=== PATIENT | male | born 1955 | race Caucasian/White ===

== ENCOUNTER 2016-03-26 19:20 | Observation (INO) | payer OTHER ==
[~2016-03-26] VITALS: Ht 180.3 cm; Wt 102.9 kg
[2016-03-26] MEDS ORDERED: 0.9% Sodium Chloride 1,000 ML IV ONE (19:22)
[2016-03-26] MEDS ORDERED: Labetalol 5 mg/mL 4 mL Inj IV PRN (19:25)
[2016-03-26 19:30] LABS: BASOPHILS % (AUTO) 0.5 % (0-3); EOSINOPHILS % (AUTO) 3.3 % (0-5); MONOCYTES % (AUTO) 7.3 % (4-12); Mean Corpuscular Hemoglobin 28.5 pg (27.0-35.0); Mean Corpuscular Volume 82.6 fL (81-100); NEUTROPHILS % (AUTO) 60.3 % (40-74); Platelet Count 229 bil/L (150-400)
[2016-03-26 19:35] VITALS: BP 162/83; PULSE 58; RESP 17; O2SAT 98
--- NOTE | 2016-03-26 19:38 | DRSVH ---
PROCEDURE: CT BRAIN (TPA) ([id number]) INDICATIONS: Stroke TECHNIQUE: Noncontrast 4.5 mm thick angled axial sections acquired from the foramen magnum to the vertex, with c oronal reformats. COMPARISON: None. FINDINGS: Image quality: Excellent. CSF spaces: Basal cisterns are patent. No extra-axial fluid collections. The ventricles are symmet brianna in size and shape. Brain: No intracranial bleeds or masses. There is cerebral volume loss for age, with resultant vent ricular and sulcal prominence. There are periventricular and deep white matter chronic small vessel ischemic changes. There is intracranial internal carotid artery atherosclerosis. Skull and face: Calvarium and visualized facial bones appear intact, without suspicious lesions. Sinuses: Visualized sinuses and mastoids are clear. IMPRESSION: 1. No acute intracranial disease process. 2. Findings telephoned to Dr. Arvin Hou on 03/26/2016 at 1933 hrs. This study fulfills neurological imaging criteria for inclusion or exclusion of acute stroke therapie s based on available published neurological guidelines. Dictated by: Mansi Pimentel MD, PhD on 03/26/2016 at 19:36 Approved by: Mansi Pimentel MD, PhD on 03/26/2016 at 19:36
[2016-03-26 19:46] LABS: INR 0.96 ratio
[2016-03-26 19:54] LABS: TROPONIN T < 0.010 ug/L (0.0-0.011)
--- NOTE | 2016-03-26 20:36 | ED.REPORT ---
HPI-Neurologic Deficit Date of Service Mar 26, 2016 ED Provider: Arvin Hou DO This patient is a 60 year old male with no known medical history brought in by EMS presenting with a suspected stroke that started 1855. Pt. had sudden right arm weakness and numbness, as well as aphasia. After arriving to ED, these symptoms improved, though not completely. Packager strength also improved after arriving to ED. Nursing Notes Stated Complaint: RIGHT SIDE WEAKNESS Chief Complaint: Neuro Symptoms/ Deficits Nursing Notes Reviewed: Yes Allergies: Coded Allergies: Cultivated Oat Pollen (Verified Allergy, Mild, 03/26/16) sinus congestion Molds and Smuts (Verified Allergy, Unknown, 03/26/16) Scheduled ([Vitamin C]) Unknown Dose HS Aspirin (Aspirin) 81 Mg Tablet 81 MG PO HS Cholecalciferol (Vitamin D3) (Vitamin D) 1,000 Unit Capsule 2,000 UNIT PO HS Fluoxetine (Fluoxetine) 20 Mg Capsule 40 MG PO HS Scheduled PRN ([ibuprofen]) Unknown Dose PO HS PRN PRN For Pain ([viagra]) Unknown Dose PO PRN for sexual activity General Time Seen by Provider: 19:23 Chief Complaint Weakness arm... (Right) Hx Obtained From: Patient, EMS Arrived By: Ambulance Sudden in Onset?: Yes Onset Occurred: 16 - 30 minutes ago Symptom Duration: Since onset Recent Healthcare: No recent doctor visit, No recent hospitalization Similar Sx Previous: No Risk Factors Risk Notes: pt evaluated immediately upon arrival in ED NIH Stroke Scale Level of Consciousness: Alert and responsive (0) Ask Month & Age: Both questions right (0) Open/Close Eyes/Hand Packager: Performs both tasks (0) Horizontal EO Movements: None (0) Visual E[place]erson: No visual loss (0) Facial Palsy: Normal symmetry (0) Right Arm Motor Drift (10s): Drift, not touch bed (1) Left Arm Motor Drift (10s): No drift 10 sec (0) Right Leg Motor Drift (5s): No drift 5 sec (0) Left Leg Motor Drift (5s): No drift 5 sec (0) Limb Ataxia FNF/Heel-Garcia: No ataxia (0) Sensation (Arms/Legs/Face): No sensory loss (0) Language Aphasia: No aphasia, normal (0) Dysarthria: Slurring intelligible (1) Extinction/Inattention: No exctinct/inattent (0) NIHSS Score: 2 Time NIHSS Performed: 19:23 Date NIHSS Performed: Mar 26, 2016 Level of Consciousness: Alert and responsive (0) Ask Month & Age: Both questions right (0) Open/Close Eyes/Hand Packager: Performs both tasks (0) Horizontal EO Movements: None (0) Visual E[place]erson: No visual loss (0) Facial Palsy: Normal symmetry (0) Right Arm Motor Drift (10s): No drift 10 sec (0) Left Arm Motor Drift (10s): No drift 10 sec (0) Right Leg Motor Drift (5s): No drift 5 sec (0) Left Leg Motor Drift (5s): No drift 5 sec (0) Limb Ataxia FNF/Heel-Garcia: No ataxia (0) Sensation (Arms/Legs/Face): No sensory loss (0) Language Aphasia: No aphasia, normal (0) Dysarthria: No dysarthria, normal (0) Extinction/Inattention: No exctinct/inattent (0) NIHSS Score: 0 Time NIHSS Performed: 20:25 Date NIHSS Performed: Mar 26, 2016 Past Medical History Past Medical History Unknown Past Surgical History Unknown Smoking History Unknown if Ever Smoker Social History Other Social History: Good social support, , Local resident Ambulatory Status Independent Review of Systems Basic Review of Systems ENT: Hearing NL Respiratory: Denies: Non-productive cough Skin: Denies Rash Neurologic: Reports: Slurred speech, Weakness (R arm) Complete sys rev & neg: except as marked. Physical Exam Initial Vital Signs Vital Signs (First) Date Time Temp Pulse Resp B/P Pulse Ox O2 Delivery O2 Flow Rate FiO2 03/26/16 19:35 36.8 58 17 162/83 98 Room Air Initial VS: Reviewed ENT: Mucous membranes moist, Conjunctiva normal, No scleral icterus Neck: Supple, Non-tender, Full range of motion Abdomen / GI: Soft, Non-tender Skin: Warm, Dry, No cyanosis General/Constitutional: Awake, Well developed Head / Eyes: Atraumatic, Normocephalic Respiratory / Chest: Atraumatic, Breath sounds NL, Breath sounds = bilat, No respiratory distress, No rales, No rhonchi, No retractions Cardiovascular: Heart rate NL, Regular rhythm, Heart sounds NL, No gallop, No murmurs Speech: Positive: Expressive aphasia (Mild upon arrival to ED) R arm clumsiness upon arrival to ED Interpretation & Diagnostics Interpretation & Diagnostics: CT angiogram of head, conclusion: Normal non-contrast CT scan of the head CT angiogram of neck, conclusion: Normal CT angiogram of the head Dictated by: Tk Coles MD Lab Results Interpretation Result Diagram: 03/26/16192703/26/161927 Test 03/26/16 19:28 03/26/16 20:45 White Blood Count 5.8th/mm3 (3.8-10.1) Red Blood Count 5.33mil/mm3 (4.40-5.80) Hemoglobin 15.2g/dL (13.8-17.2) Hematocrit 44.0% (41.0-50.0) Mean Corpuscular Volume 82.6fL (81-100) Mean Corpuscular Hemoglobin 28.5pg (27.0-35.0) Mean Corpuscular Hemoglobin Concent 34.5% (32.0-37.0) Red Cell Distribution Width 12.6% (12.3-15.4) Platelet Count 229bil/L (150-400) Neutrophils (%) (Auto) 60.3% (40-74) Lymphocytes (%) (Auto) 28.3% (14-46) Monocytes (%) (Auto) 7.3% (4-12) Eosinophils (%) (Auto) 3.3% (0-5) Basophils (%) (Auto) 0.5% (0-3) Prothrombin Time 10.3sec (8.1-12.5) Prothromb Time International Ratio 0.96ratio Activated Partial Thromboplast Time 26.4sec (22.8-33.0) Sodium Level 142mEq/L (134-144) Potassium Level 4.4mEq/L (3.5-5.2) Chloride Level 101mEq/L (97-108) Carbon Dioxide Level 28mmol/L (18-29) Blood Urea Nitrogen 20mg/dL (8-27) Creatinine 1.19mg/dL (0.76-1.27) Estimat Glomerular Filtration Rate 66mL/min (>59) Glucose Level 99mg/dL (60-99) Calcium Level 9.9mg/dL (8.5-10.1) Total Bilirubin 0.5mg/dL (0.0-1.2) Aspartate Amino Transf (AST/SGOT) 31U/L (0-50) Alanine Aminotransferase (ALT/SGPT) 46U/L (0-44) Alkaline Phosphatase 78U/L (25-160) Troponin T < 0.010ug/L (0.0-0.011) Total Protein 8.0g/dL (6.4-8.4) Albumin 4.6g/dL (3.4-5.0) Urine Color Straw (YELLOW) Urine Appearance Clear (CLEAR,HAZY) Urine pH 6.0 (5.0-8.0) Urine Specific [place] 1.015 (1.003-1.035) Urine Protein Negativemg/dL (NEG,TRACE) Urine Glucose (UA) Negativemg/dL (NEGATIVE) Urine Ketones Negativemg/dL (NEGATIVE) Urine Occult Blood Trace (NEGATIVE) Urine Nitrite Negative (NEGATIVE) Urine Bilirubin Negative (NEGATIVE) Urine Urobilinogen Normalmg/dL (NORMAL) Urine Leukocyte Esterase Trace (NEGATIVE) Urine RBC 0-2/hpf (0-2) Urine WBC 0-5/hpf (0-5) Urine Epithelial Cells Occasional/hpf (NONE-MOD) Urine Crystals None seen (NONE SEEN) Urine Bacteria None/hpf (NONE-FEW) Urine Hyaline Casts None/lpf (NONE) Urine Granular Casts None seen (NONE SEEN) Urine Waxy Casts None seen (NONE SEEN) Urine Red Blood Cell Casts None seen (NONE SEEN) Urine White Blood Cell Casts None seen (NONE SEEN) Urine Mucus None seen (None Seen) Urine Trichomonas None seen (NONE SEEN) Urine Yeast None (NONE SEEN) Urinalysis Comment None Urine Culture Reflexed Indicated Pulse Oximetry Interpretation Pulse Oximetry Interpretation: 98% on room air Pulse Oximetry: Pulse Ox normal ECG Interpretation ECG Interpretation: Normal sinus rhythm with a rate 53 Time: 19:36 Interpreted by: ED physician X-Ray Chest Interpretation Chest Xray Interpretation: IMPRESSION: No acute cardiopulmonary disease process. Dictated by: Mansi Pimentel MD, PhD on 03/26/2016 at 20:44 Interpretation / Wet Read by: Interpret - Radiologist CT Head Interpretation IMPRESSION: 1. No acute intracranial disease process. 2. Findings telephoned to Dr. Arvin Hou on 03/26/2016 at 1933 hrs. This study fulfills neurological imaging criteria for inclusion or exclusion of acute stroke therapies based on available published neurological guidelines. Dictated by: Mansi Pimentel MD, PhD on 03/26/2016 at 19:36 Study: Head CT no contrast Interpretation / Wet Read by: Interpret - Radiologist Re-Eval/Medical Decision Med Decision/Clinical Course 60-year-old male presented with rapidly improving aphasia/diffuse arthritic and right mobile lounge driver or operator strength loss. I evaluated him as he was rolling to CAT scan. He had very poor mobile lounge driver or operator strength of his right arm and his arm had a pronator drift. His speech was mildly dysarthric. Shortly thereafter all deficits resolved. I performed no less than 4 stroke exams. His final 3 stroke exams were all scored at 0. CT and CT angiogram were reassuring. He was treated with antiplatelets. He will be admitted to the hospitalist service. Source of Hx: Old records, EMS Re-Evaluation/Progress #1: Time of Eval: 20:25 Patient Status: Condition improved Re-Evaluation/Progress Note: Pt rechecked, whose condition has improved. Pt and family are informed of radiology results, diagnosis of TIA, and the plan for admission. Pt and his family understand and agree with the plan. All questions are addressed at this time. Re-Evaluation/Progress #2: Time of Eval: 22:15 Patient Status: Condition unchanged Re-Evaluation/Progress Note: Pt. rechecked. Informed pt. that we are waiting on a bed in admit. Pt. understands and agrees with plan. All questions have been addressed at this time. Consultation : Referral / Consult Name: Quan Berger MD Consulted With: Hospitalist Call Returned at: 22:09 Blow Down Operator: Will see patient, Agrees with eval, Agrees with plan, Accepts admit Note: Consulted with Dr. Begrer, hospitalist, regarding pt.'s case. Dr. Berger agrees with eval and plan. He will see the patient and accept admit. Counseled Regarding: Diagnosis, Lab results, Need for admission Discharge & Departure Impression: Primary Impression: TIA (transient ischemic attack) Transient cerebral ischemia type: unspecified Qualified Code: G45.9 - Transient cerebral ischemic attack, unspecified Disposition: ADMITTED TO HOSPITAL Discharge Condition All VS Reviewed: Yes Condition: Stable Referrals: NOPCP (PCP) Scribe Attestation Portions of this note were transcribed by Koki Buchanan and Tsering Billingsley. I, Dr. Hou personally performed the history, physical exam and medical decision-making ; I reviewed and confirmed the accuracy of the information in the transcribed note. Signed by: Koki Buchanan and Tsering Billingslye, Nithin, 03/26/2016 and 2308. Arvin Hou DO Mar 26, 2016 20:36 Kelly Buchanan [Koki] Mar 26, 2016 20:59 TSERING BILLINGSLEY Mar 26, 2016 21:19
--- NOTE | 2016-03-26 20:45 | DRSVH ---
PROCEDURE: X-RAY CHEST ONE VIEW, PORTABLE ([id number]) INDICATIONS: RIGHT SIDED WEAKNESS TECHNIQUE: One view of the chest was acquired. COMPARISON: None. FINDINGS: Surgical changes and devices: None. Lungs and pleura: No pleural effusions or pneumothorax. Lungs are clear. Mediastinum: Mediastinal contours appear normal. Heart size is normal. Bones and chest wall: No suspicious bony lesions. Overlying soft tissues appear unremarkable. IMPRESSION: No acute cardiopulmonary disease process. Dictated by: Mansi Pimentel MD, PhD on 03/26/2016 at 20:44 Approved by: Mansi Pimentel MD, PhD on 03/26/2016 at 20:44
[2016-03-26 20:57] LABS: APPEARANCE,URINE CLEAR (CLEAR,HAZY); COLOR,URINE STRAW (YELLOW); OCCULT BLOOD,URINE TRACE (NEGATIVE); UROBILINOGEN,URINE NORMAL (NORMAL)
[2016-03-26 21:51] VITALS: BP 135/74; PULSE 54; RESP 16; O2SAT 95
[2016-03-26] MEDS ORDERED: Ondansetron 2 mg/mL 2 mL Inj IV PRN (22:15)
[2016-03-26] MEDS ORDERED: Alum-Mag Hydrox-Simeth 30 mL Suspension PO PRN (22:15)
[2016-03-26] MEDS ORDERED: Polyethylene Glycol (PEG) 17 Gm Powder PO PRN (22:15)
[2016-03-26 23:05] VITALS: BP 172/96; PULSE 57; RESP 20; O2SAT 100
[2016-03-26] MEDS: 0.9% Sodium Chloride 1,000 ML IV SCH (23:13)
--- NOTE | 2016-03-26 23:24 | PCM.HPMED ---
Subjective Date of Service Mar 26, 2016 Primary Provider: Admitting Physician: Primary Care Physician: Thanh Attending Physician: Admit Status: From the Emergency Department Chief Complaint: Right arm weakness and aphasia History of Present Illness: 60 year old male with hx of anxiety, erectile dysfunction, and no other medical problems presented to ED via EMS due to acute onset of right arm numbness and weakness with concurrent aphasia that began at 1855 (3 1/2 hours) this evening. Pt states that his symptoms came on suddenly after sitting down at a computer. His called EMS after 2 minutes. He states that his symptoms began resolving within 5 minutes and were mostly gone by the time EMS arrived. He has never experienced these symptoms prior to this. He denies ongoing medical problems as well as past medical hx. No family hx of CVA but his mother of PR at 72. His PCP is at [facility]. He worked for [employer] in [place] This patient is a 60 year old male with no known medical history brought in by EMS presenting with a suspected stroke that started 1855. Pt. had sudden right arm weakness and numbness, as well as aphasia. After arriving to ED, these symptoms improved, but not 100%. Manager Maritime strength was improved after arriving to ED. Review of Systems: A comprehensive review of systems was conducted with the patient and found to be negative except as above in the History of Present Illness. Allergies Coded Allergies: Cultivated Oat Pollen (Verified Allergy, Mild, 03/26/16) sinus congestion Molds and Smuts (Verified Allergy, Unknown, 03/26/16) Home Medications Prozac Asa 81mg daily PMH Anxiety Erectile dysfunction Surgical History ACL repair Orthoscopic meniscus repair Tonsillectomy Social History Hx Alcohol Use: No (quit 30 years ago) Hx Tobacco Use: No Smoking Status: Never Smoker Living Arrangement: with Family Exam Vital Signs Vital Sign - Last Date Time Temp Pulse Resp B/P Pulse Ox O2 Delivery O2 Flow Rate FiO2 03/26/16 21:51 54 16 135/74 95 Room Air 03/26/16 19:35 36.8 Exam Gen: AOx3 NAD HEENT: EOMI, PERRLA good dentition; membranes moist Cardio: RRR no m/r/g Resp: CTA bilaterally no w/r/c Abd: central obesity; + bs; non-distended, non-tender Est: No edema; moving all four extremities Neuro: EOMI, PERRLA, swallow intact; no tongue deviation; speech is slightly slurred due to mouth guard ( states hes at baseline and improved), face is symmetrical, hearing symmetric and intact; no sensation loss throughout; strength 5/5 throughout and symmetric; babinski negative; [id number]-[id number] appropriate; finger-nose intact; no pronator drift; responds appropriately psych: NAD; appropriate mood and affect NIH score: 0 Lab and Diagnostics Result Diagram: 03/26/16192703/26/161927 X-Rays, CTs and MRIs Chest X-ray IMPRESSION: No acute cardiopulmonary disease process. Dictated by: Mansi Pimentel MD, PhD on 03/26/2016 at 20:[address] IMPRESSION: 1. No acute intracranial disease process. 2. Findings telephoned to Dr. Arvin Hou on 03/26/2016 at 1933 hrs. This study fulfills neurological imaging criteria for inclusion or exclusion of acute stroke therapies based on available published neurological guidelines. Dictated by: Mansi Pimentel MD, PhD on 03/26/2016 at 19:36 12-lead ECG NSR at 53bpm Assessment & Plan 60 year old with hx of anxiety presented to ED via EMS due to acute onset right arm numbness and weakness, and aphasia that started to resolved by the time EMS arrived. Acute TIA vs stroke; poa; resolving - Pt presents with right arm weakness and numbness, and aphasia that began resolving in the ED. Initial NIH was 2 in ED, now NIH 0 - No medical hx, unsure what triggered this TIA - CT brain was negative; CTA pending; - Consider MRI w and w/o contrast tomorrow; however, radiology report on CT states that CT fulfills requirement for inclusion/exclusion of acute stroke - Start atorvastatin 40mg HS - Continue home ASA 81 tomorrow; given 325 on admission - Will allow htn up to SBP 200 tonight; was treated in ED with labetalol - Lipid panel tomorrow - A1c tomorrow, but likely to be normal as pt was eating prior to presentation and BG < 100 - Repeat labs Anxiety; present on admission; stable - Pt takes Prozac outpatient. - Will not order anything at this time. - When med rec completed, will continue prozac Dispo: Pt admitted under observation with expected LOS < 2 midnights pending outcome of diagnostics Pain Evaluation: Adequate Pain Control Resuscitation Status: CPR: Attempt Resuscitation Attending Statement The patient was seen on 03/26/2016 and I agree with the history, exam and plan as outlined in the note above. Killian Koenig DO Mar 26, 2016 23:24 Quan Berger MD Mar 27, 2016 06:19
[2016-03-26] MEDS ORDERED: ASPI-973 PO (23:50)
[2016-03-26] MEDS ORDERED: FLUO20CA25 PO (23:50)
[2016-03-26] MEDS ORDERED: Vitamin C (23:50)
[2016-03-26] MEDS ORDERED: CHOL100045 PO (23:51)
[2016-03-26] MEDS ORDERED: ibuprofen PO (23:52)
[2016-03-26] MEDS ORDERED: viagra PO (23:54)
[2016-03-27 04:18] VITALS: BP 129/74; PULSE 53; RESP 16; O2SAT 98
[2016-03-27 05:16] VITALS: PULSE 56
[2016-03-27 05:55] LABS: BASOPHILS % (AUTO) 0.6 % (0-3); EOSINOPHILS % (AUTO) 3.9 % (0-5); MONOCYTES % (AUTO) 8.8 % (4-12); Mean Corpuscular Hemoglobin 28.7 pg (27.0-35.0); Mean Corpuscular Volume 82.7 fL (81-100); NEUTROPHILS % (AUTO) 54.1 % (40-74); Platelet Count 185 bil/L (150-400)
[2016-03-27] MEDS: 0.9% Sodium Chloride 1,000 ML IV SCH (07:20)
[2016-03-27 07:52] VITALS: BP 129/75; PULSE 59; RESP 14; O2SAT 96
[2016-03-27 08:00] VITALS: PULSE 54
--- NOTE | 2016-03-27 08:17 | NUR ---
Admit Pt admitted to [facility] 2029 around 0, no neuro deficits noted with assessments, nurse charge rn did swallow screen per order and pt had no difficulties. Pt A&Ox3 and able to answer admit questions, all vitals stable. Tele Sbrady 50s most of night, NS @ 125/hr
--- NOTE | 2016-03-27 08:49 | DRSVH ---
PROCEDURE: US BILATERAL DUPLEX DOPPLER IMAGING OF THE CAROTIDS ([id number]) INDICATIONS: APHASIA TECHNIQUE: Color and pulse Doppler interrogation was performed of both carotid systems, with image documentation and velocity measurements. COMPARISON: None. FINDINGS: All stenosis calculations are based on NASCET criteria. Right side: Brachial blood pressure: Not obtained due to peripheral IV catheter. Common Carotid Artery(Distal) PSV: 73.50 cm/s Internal Carotid Artery PSV- Proximal: 100.10 cm/s Mid-lon cm/s Distal: 121.20 cm/s, 68.30 cm/s EDV - Proximal: 36.20 cm/s Mid-lon.80 cm/s Distal: 40.40 cm/s, 22.60 cm/s External Carotid Artery(Proximal) PSV: 152.30 cm/s ICA/CCA PSV ratio: 1.65 Benson scale imaging description: Focal atheromatous calcification is present at the bifurcation. Percent internal carotid artery stenosis: Less than 50% stenosis. Vertebral artery: Flow direction is antegrade. Left side: Brachial blood pressure: 129/74 mm Hg. Common Carotid Artery(Distal) PSV: 89.10 cm/s Internal Carotid Artery PSV - Proximal: 76.90 cm/s, 98.90 cm/s Mid-lon.70 cm/s Distal: 93.70 cm/s EDV - Proximal: 26 cm/s, 45.10 cm/s Mid-lon.90 cm/s Distal: 37 cm/s External Carotid Artery(Proximal) PSV: 90.80 cm/s ICA/CCA PSV ratio: 1.11 Benson scale imaging description: Focal atheromatous plaque is present at the bifurcation. Percent internal carotid artery stenosis: Less than 50%. Vertebral artery: Flow direction is antegrade. IMPRESSION: Less than 50% stenosis of the bilateral internal carotid arteries. Dictated by: Radha Rosales M.D. on 03/27/2016 at 8:47 Approved by: Radha Rosales M.D. on 03/27/2016 at 8:47
--- NOTE | 2016-03-27 09:18 | DRSVH ---
PROCEDURE: CT ANGIO HEAD AND NECK (P) INDICATIONS: POSSIBLE TIA, NEURO DEFICITS TECHNIQUE: Pre-contrast 4.5 mm thick sections acquired from the foramen magnum to the vertex. After the adminis tration of intravenous contrast, 1 mm thick sections acquired from the aortic arch through the [place]. Post-contrast 4.5 mm thick sections then re-acquired from the foramen magnum to the vert ex. 3-dimensional pbjeike-zdikiencv-lrobdnayfm (MIP) and/or volume rendering reformats were acquired of the central intracranial vasculature and neck separately. For radiation dose reduction, the foll owing was used: automated exposure control, adjustment of mA and/or kV according to patient size. COMPARISON: None. FINDINGS: Image quality: Excellent. BRAIN: CSF spaces: Ventricles are normal in size and shape. Basal cisterns are patent. No extra-axial flu id collections. Brain: No midline shift. No intracranial bleeds or masses. Benson-white matter interface appears int act. Skull and face: Calvarium and facial bones appear intact, without suspicious lesions. Orbits appear normal. Sinuses: Mild mucosal thickening noted in the maxillary sinuses bilaterally. The mastoids are clear. HEAD CT ANGIOGRAPHY: Anterior circulation: Intracranial internal carotid arteries are normal in size and flow. Atheroscle rotic calcifications are noted in the supraclinoid segments of the internal carotid arteries bilatera lly which cause measurable stenosis. The flow within the paired anterior cerebral arteries is normal and symmetric. The flow within the middle cerebral arteries is normal and symmetric. The anterior c ommunicating artery is seen. No aneurysms are seen. Posterior circulation: Visualized portions of the vertebral arteries demonstrate normal caliber, and join to form a normal appearing basilar artery. Flow within the posterior cerebral arteries is norm al and symmetric. No aneurysms are seen. There is normal contrast opacification of the dural sinuses. NECK CT ANGIOGRAPHY: Carotid system: The great vessels demonstrate a conventional anatomy as they arise from the aortic a the [facility]. The origins of the common carotid arteries appear patent. The common carotid arteries demonstr ate normal caliber and courses. Atherosclerotic calcifications noted in the origin of the right inter nal carotid artery which causes less than 50% stenosis of the vessel. The left internal carotid arter y is fully patent along its cervical segments. Posterior circulation: The origins of the vertebral arteries both appear widely patent. The more ochoa perior extracranial portions of both vertebral arteries also demonstrate normal courses and calibers. They join to form a normal appearing basilar artery. Soft tissues: Visualized neck soft tissues demonstrate no suspicious abnormalities. Bones: Spine degenerative disc disease and facet arthropathy are noted. No suspicious bony lesions. Visualized cervical spine appears normally aligned. IMPRESSION: 1. No acute intracranial disease process. 2. Atherosclerotic disease without measurable stenosis involving the supraclinoid segment of the intr acranial internal carotid arteries bilaterally. 3. Less than 50% stenosis of the origin of the right internal carotid artery. 4. Origin of the left internal carotid artery is fully patent. 5. Vertebral arteries are fully patent. 6. Mild bilateral maxillary sinus mucosal thickening. Dictated by: Mansi Pimentel MD, PhD on 03/27/2016 at 9:16 Approved by: Mansi Pimentel MD, PhD on 03/27/2016 at 9:16
--- NOTE | 2016-03-27 10:30 | DRSVH ---
[facility] [address] [place] [address] Echocardiogram Report Name: VLADISLAV MAGALLON Study Date: 03/27/2016 Height: 71 in Hospital Exam Location: [facility] Weight: 227 lb Gender: Male BSA: 2.2 m2 : 1955 Age: 60 yrs BP: 129/75 mmHg Reason For Study: Stroke Ordering Physician: HOSPITALIST SVHPerformed By: Leoncio Chu Referring Physician: JESSICA STEWART Interpretation Summary 1. Normal normal left ventricular size, wall thickness and systolic function with an estimated EF of 60-65% 2. Normal right ventricular size and systolic function. 3. No evidence for significant valvular pathology There is no old study for comparison Procedure: A two-dimensional transthoracic echocardiogram with color flow and Doppler was performed. The study quality was technically adequate. There is no prior echocardiogram noted for this patient. The patient was in sinus bradycardia with heart rates between 49-57 bpm during the exam. Left Ventricle: The left ventricle is normal in size, wall thickness, and systolic function without any focal wall motion abnormalities. Proximal septal thickening is noted. Mildly elevated LVOT velocities. The ejection fraction is estimated to be 60-65%. Left ventricular wall motion is normal. Assessment of diastolic parameters indicates normal left ventricular diastolic function and normal filling pressures. Right Ventricle: The right ventricle is normal in size, thickness and function. Atria: The left atrial size is normal. Right atrial size is normal. No color doppler evidence for an ASD. Mitral Valve: The mitral valve is normal. There is mild mitral regurgitation. Aortic Valve: The aortic valve is trileaflet. The aortic valve opens well. There is trace aortic regurgitation. Tricuspid Valve: The tricuspid valve is normal. There is a trace or physiologic amount of tricuspid regurgitation. Pulmonary artery pressures cannot be estimated because of the lack of a measurable TR jet velocity. Pulmonic Valve: The pulmonic valve leaflets are thin and pliable; valve motion is normal. There is a trace or physiologic amount of pulmonic regurgitation. Great Vessels: The aortic root is normal size. The dimensions of the ascending aorta are normal. The pulmonary artery is normal size. The inferior vena cava was not well visualized. Pericardium/ Pleura There is no pericardial effusion. There is no pleural effusion. MMode/2D Measurements & Calculations LVIDd: 4.6 cm RA long axis LVOT diam: 2.2 cm LVIDs: 3.3 cm LA A2 area: 17.4 cm AoV Openin.8 cm FS: 28.5 % LA A4 area: 22.3 cm RA area Ao root diam: 2.7 cm EPSS: 0.05 cm LA length (vol) asc Aorta Diam IVSd: 0.92 cm : 17.8 cm LVPWd: 1.0 cm LA vol: 56.8 ml RA vol Ao Arch Diam LA vol index : 50.8 ml (Proximal trans.) RA : 25.5 ml/m2 : 22.8 mm2 LV rm. diameter/BSALV sys. diameter/BSA RVD1 (basal) TAPSE: 2.6 cm (cm/m^2): 2.1 (cm/m^2): 1.5 Doppler Measurements & Calculations Ao V2 max: 137.9 cm/secMV E max ezio MV E/A: 1.0 PA V2 max Ao max P.6 mmHg : 64.8 cm/sec Med Peak E' Ezio : 90.8 cm/sec Ao mean P.7 mmHg MV A max ezio PA mean PG LVOT Max Ezio : 63.7 cm/sec E/E' med: 14.3 : 1.6 mmHg : 112.8 cm/sec Lat Peak E' Ezio NOEMI(I,D): 3.3 cm sev ratio: 0.85 E/E' lat: 9.3 MV dec time: 0.17 sec Ao V2 mean LV V1 max PG PA V2 mean : 91.4 cm/sec : 59.9 cm/sec Ao V2 VTI: 28.8 cmLV V1 VTI: 24.5 cm PA pr(Accel) : 55.6 mmHg NOEMI(V,D): 3.2 cm2 NOEMI indexed to BSA E/e' average (cm^2/m^2): 1.5 : 11.8 Reading Physician:10:30 AM
[2016-03-27 12:29] VITALS: BP_SYST 109; BP_SYST 145; BP_DIAS 52; BP_DIAS 89; PULSE 57; PULSE 77; RESP 16; RESP 18; O2SAT 97; O2SAT 99
--- NOTE | 2016-03-27 13:34 | DRSVH ---
PROCEDURE: MRI BRAIN WITH AND WITHOUT CONTRAST ([id number]) INDICATIONS: stroke TECHNIQUE: Noncontrast axial T1 spin echo, axial T2 fast spin echo, sagittal and axial FLAIR, coronal T2 fast sp in echo, axial gradient echo, axial diffusion and ADC through the brain. After the administration of contrast, axial and coronal 3D VIBE or T1 spin echo with fat saturation through the brain. COMPARISON: None. FINDINGS: Image quality: Excellent. CSF Spaces: Basal cisterns are patent. No extra-axial fluid collections. Ventricles are normal in size and shape. Brain: No midline shift. No intracranial bleeds or masses. No abnormal intracranial enhancement. The brainstem appears normal. Diffusion-weighted images demonstrate no acute ischemic insults. No c hronic ischemic insults. Normal intravascular flow voids are present. Skull and face: Calvarial marrow is normal in signal. Orbits appear normal. Sinuses: Minimal mucosal thickening noted in the paranasal sinuses. The mastoids appear clear. IMPRESSION: 1. No acute intracranial disease process. 2. No areas of acute or chronic infarction. 3. No abnormal intracranial mass or abnormal intracranial postcontrast enhancement. 4. Minimal paranasal sinus mucosal thickening. Please correlate with clinical findings. Dictated by: Mansi Pimentel MD, PhD on 03/27/2016 at 13:32 Approved by: Mansi Pimentel MD, PhD on 03/27/2016 at 13:32
--- NOTE | 2016-03-27 13:40 | NUR ---
Evaluation completed. Please go to "Notes" then click on "Assessments and Notes" (bottom left corner of screen). Then select appropriate discipline tab on top of screen.
[2016-03-27] MEDS ORDERED: ATOR40TA69 PO (14:16)
--- NOTE | 2016-03-27 14:16 | NUR ---
Mentation patient is alert and oriented X3. able to make needs known. General diet per speech therapy. neuros WNL. stable vital signs . On Tele. independent with all ADL's. independent with meals after set up. Received PO medication as ordered with out difficulty swallowing. Doctor at bed side. per doctor carotid doppler, MRI, and Echo normal. denies pain or discomfort. no reports of chest pain or chest discomfort reported by patient. family at bed side.
--- NOTE | 2016-03-27 14:26 | PCM.DIMED ---
LUÍS CHUNG DO 03/27/16 1426: Discharge Instructions Date of Service Mar 27, 2016 Dates of Hospitalization Mar 26, 2016 at 22:36 Discharge Diagnosis Discharge Diagnosis 1. Acute transient ischemic attack vs stroke, as on admission, resolved. 2. Elevated triglycerides, present on admission, new diagnosis. 3. Anxiety, present on admission. stable. Medication Instructions One new medication has been added to your home regimen to help improve your cholesterol levels: - Atorvastatin 40 mg nightly Continue all other medications per instructions by their prescriber. Diet Heart Healthy, Other (low carbohydrate) Activity No restrictions Call your provider Fever or Chills, Shortness of breath, Bleeding, Chest pain, Weakness (unilateral ) Patient Instructions - The symptoms you experienced yesterday of weakness and difficulty speaking or direct results of disease in your arteries. It is important that you control this and make proper lifestyle changes so that this does not progress and cause more lasting effects. - Please follow a low carbohydrate diet. This includes eliminating sugary drinks such as soda. - Increasing your physical activity is also important. Starting with walking daily and increasing as tolerated. - Follow-up with your primary care provider in one week. Follow-up with PCP in: 1 week Fco Hampton MD 03/28/16 0808: Discharge Instructions Attending's Statement The patient was seen and examined together with Dr. Chung on 03/27/2016 and I agree with the history, exam and plan as outlined in the note above. . LUÍS CHUNG DO Mar 27, 2016 14:26 Fco Hampton MD Mar 28, 2016 08:08
--- NOTE | 2016-03-27 15:19 | NUR ---
Discharge Home Patient discharged home with spouse accompanied by nursing staff in wheel chair at 1520. denies pain or discomfort. denies chest pain or discomfort. stable vitals. Reviewed discharge paper work including doctor written discharge instructions, medications, written care notes/instructions, and new prescription for Atorvastatin. patient and family understood discharge instructions and agreed. IV removed from right AC with out difficulty. Neuros WNL. able to move all four extremities.
--- NOTE | 2016-03-27 15:53 | PCM.DC.MED ---
Discharge Summary Date of Service Mar 27, 2016 Dates of Hospitalization Date of Hospital Admission Mar 26, 2016 at 22:36 Date of Discharge: Mar 27, 2016 Providers: Admitting Physician: Quan Berger MD Primary Care Physician: Nopdari Attending Physician: Quan Berger MD Diagnosis at Time of Discharge Diagnosis at Time of Discharge 1. Acute transient ischemic attack vs stroke, as on admission, resolved. 2. Elevated triglycerides, present on admission, new diagnosis. 3. Anxiety, present on admission. stable. Procedures XRay, CTs & MRIs MRI BRAIN WITH AND WITHOUT CONTRAST IMPRESSION: 1. No acute intracranial disease process. 2. No areas of acute or chronic infarction. 3. No abnormal intracranial mass or abnormal intracranial postcontrast enhancement. 4. Minimal paranasal sinus mucosal thickening. Please correlate with clinical findings. Dictated by: Mansi Pimentel MD, PhD on 03/27/2016 at 13:32 Approved by: Mansi Pimentel MD, PhD on 03/27/2016 at 13:32 CT ANGIO HEAD AND NECK (P) IMPRESSION: 1. No acute intracranial disease process. 2. Atherosclerotic disease without measurable stenosis involving the supraclinoid segment of the intracranial internal carotid arteries bilaterally. 3. Less than 50% stenosis of the origin of the right internal carotid artery. 4. Origin of the left internal carotid artery is fully patent. 5. Vertebral arteries are fully patent. 6. Mild bilateral maxillary sinus mucosal thickening. Dictated by: Mansi Pimentel MD, PhD on 03/27/2016 at 9:16 Approved by: Mansi Pimentel MD, PhD on 03/27/2016 at 9:16 BILATERAL DUPLEX DOPPLER IMAGING OF THE CAROTIDS IMPRESSION: Less than 50% stenosis of the bilateral internal carotid arteries. Dictated by: Radha Rosales M.D. on 03/27/2016 at 8:47 Approved by: Radha Rosales M.D. on 03/27/2016 at 8:47 Chest X-ray IMPRESSION: No acute cardiopulmonary disease process. Dictated by: Mansi Pimentel MD, PhD on 03/26/2016 at 20:[address] IMPRESSION: 1. No acute intracranial disease process. 2. Findings telephoned to Dr. Arvin Hou on 03/26/2016 at 1933 hrs. This study fulfills neurological imaging criteria for inclusion or exclusion of acute stroke therapies based on available published neurological guidelines. Dictated by: Mansi Pimentel MD, PhD on 03/26/2016 at 19:36 ECG 12 Lead NSR at 53bpm Cardiac Echo Impression Echocardiogram Report Interpretation Summary 1. Normal normal left ventricular size, wall thickness and systolic function with an estimated EF of 60-65% 2. Normal right ventricular size and systolic function. 3. No evidence for significant valvular pathology Reading Physician:10:30 AM Brief History Per Dr. Koenig's H&P: 60 year old male with hx of anxiety, erectile dysfunction, and no other medical problems presented to ED via EMS due to acute onset of right arm numbness and weakness with concurrent aphasia that began at 1855 (3 1/2 hours) this evening. Pt states that his symptoms came on suddenly after sitting down at a computer. His called EMS after 2 minutes. He states that his symptoms began resolving within 5 minutes and were mostly gone by the time EMS arrived. He has never experienced these symptoms prior to this. He denies ongoing medical problems as well as past medical hx. No family hx of CVA but his mother of [place] at 72. His PCP is at [facility]. He worked for the [email or web address] in [place] This patient is a 60 year old male with no known medical history brought in by EMS presenting with a suspected stroke that started 1855. Pt. had sudden right arm weakness and numbness, as well as aphasia. After arriving to ED, these symptoms improved, but not 100%. Education Liaison strength was improved after arriving to ED. Hospital Course 60 year old with hx of anxiety presented to ED via EMS due to acute onset right arm numbness and weakness, and aphasia that started to resolved by the time EMS arrived. 1. Acute TIA vs stroke, present on admission, resolved - Patient presented with right arm weakness and numbness, and aphasia that resolved in the ED. Initial NIH was 2 in ED. NIH 0 upon discharge. - Elevated triglycerides of 380 and HDL of 23. Likely atherosclerotic vessels contributing. - CT brain, CTA, MRI, an echo showed no acute processes and were within normal limits. - Atorvastatin 40mg HS - Continue home ASA 81 tomorrow; given 325 on admission - Allowed permissive hypertension overnight. 2. Anxiety, present on admission, stable - Patient takes Prozac outpatient. - Patient states he does not feel anxious at this time. 3. Elevated triglycerides, present on admission, unknown current city. - Triglycerides found to be 380 on lipid panel. - Likely a large contributor to cerebrovascular accident. - Discussed lifestyle modifications and diet. - Atorvastatin as above. Exam Vital Signs (Last) Date Time Temp Pulse Resp B/P Pulse Ox O2 Delivery O2 Flow Rate FiO2 03/27/16 12:29 36.6 57 16 145/89 97 Room Air Exam Gen: AOx3 NAD HEENT: EOMI, PERRLA good dentition; membranes moist Cardio: RRR no m/r/g Resp: CTA bilaterally no w/r/c Abd: central obesity; + bs; non-distended, non-tender Est: No edema; moving all four extremities Neuro: EOMI, PERRLA, swallow intact; no tongue deviation; speech is slightly slurred due to mouth guard ( states hes at baseline and improved), face is symmetrical, hearing symmetric and intact; no sensation loss throughout; strength 5/5 throughout and symmetric; babinski negative; [id number] appropriate; finger-nose intact; no pronator drift; responds appropriately Psych: NAD; appropriate mood and affect NIH score: 0 Test 03/26/16 19:28 03/26/16 20:45 03/27/16 05:45 Prothrombin Time 10.3sec (8.1-12.5) Prothromb Time International Ratio 0.96ratio Activated Partial Thromboplast Time 26.4sec (22.8-33.0) Troponin T < 0.010ug/L (0.0-0.011) Urine Color Straw (YELLOW) Urine Appearance Clear (CLEAR,HAZY) Urine pH 6.0 (5.0-8.0) Urine Specific [place] 1.015 (1.003-1.035) Urine Protein Negativemg/dL (NEG,TRACE) Urine Glucose (UA) Negativemg/dL (NEGATIVE) Urine Ketones Negativemg/dL (NEGATIVE) Urine Occult Blood Trace (NEGATIVE) Urine Nitrite Negative (NEGATIVE) Urine Bilirubin Negative (NEGATIVE) Urine Urobilinogen Normalmg/dL (NORMAL) Urine Leukocyte Esterase Trace (NEGATIVE) Urine RBC 0-2/hpf (0-2) Urine WBC 0-5/hpf (0-5) Urine Epithelial Cells Occasional/hpf (NONE-MOD) Urine Crystals None seen (NONE SEEN) Urine Bacteria None/hpf (NONE-FEW) Urine Hyaline Casts None/lpf (NONE) Urine Granular Casts None seen (NONE SEEN) Urine Waxy Casts None seen (NONE SEEN) Urine Red Blood Cell Casts None seen (NONE SEEN) Urine White Blood Cell Casts None seen (NONE SEEN) Urine Mucus None seen (None Seen) Urine Trichomonas None seen (NONE SEEN) Urine Yeast None (NONE SEEN) Urinalysis Comment None Urine Culture Reflexed Indicated White Blood Count 5.1th/mm3 (3.8-10.1) Red Blood Count 4.57mil/mm3 (4.40-5.80) Hemoglobin 13.1g/dL (13.8-17.2) Hematocrit 37.8% (41.0-50.0) Mean Corpuscular Volume 82.7fL (81-100) Mean Corpuscular Hemoglobin 28.7pg (27.0-35.0) Mean Corpuscular Hemoglobin Concent 34.7% (32.0-37.0) Red Cell Distribution Width 12.3% (12.3-15.4) Platelet Count 185bil/L (150-400) Neutrophils (%) (Auto) 54.1% (40-74) Lymphocytes (%) (Auto) 32.4% (14-46) Monocytes (%) (Auto) 8.8% (4-12) Eosinophils (%) (Auto) 3.9% (0-5) Basophils (%) (Auto) 0.6% (0-3) Sodium Level 139mEq/L (134-144) Potassium Level 4.6mEq/L (3.5-5.2) Chloride Level 103mEq/L (97-108) Carbon Dioxide Level 27mmol/L (18-29) Blood Urea Nitrogen 18mg/dL (8-27) Creatinine 1.12mg/dL (0.76-1.27) Estimat Glomerular Filtration Rate 71mL/min (>59) Glucose Level 106mg/dL (60-99) Calcium Level 8.6mg/dL (8.5-10.1) Magnesium Level 2.0mg/dL (1.6-2.6) Total Bilirubin 0.4mg/dL (0.0-1.2) Aspartate Amino Transf (AST/SGOT) 24U/L (0-50) Alanine Aminotransferase (ALT/SGPT) 37U/L (0-44) Alkaline Phosphatase 61U/L (25-160) Total Protein 6.2g/dL (6.4-8.4) Albumin 3.8g/dL (3.4-5.0) Triglycerides Level 380mg/dL (0-149) Cholesterol Level 198mg/dL (100-199) LDL Cholesterol, Calculated 99.000mg/dL (0-99) VLDL Cholesterol 76.000mg/dL HDL Cholesterol 23mg/dL (>39) Cholesterol/HDL Ratio 8.61 (0.0-4.4) Discharge Medications Discharge Medications ([Vitamin C]) Unknown Dose HS (Reported) Aspirin (Aspirin) 81 Mg Tablet 81 MG PO HS (Reported) Atorvastatin Calcium (Atorvastatin Calcium) 40 Mg Tablet 40 MG PO HS Prescribed by: LUÍS CHUNG DO Cholecalciferol (Vitamin D3) (Vitamin D) 1,000 Unit Capsule 2,000 UNIT PO HS ( Reported) Fluoxetine (Fluoxetine) 20 Mg Capsule 40 MG PO HS (Reported) As needed ([ibuprofen]) Unknown Dose PO HS PRN PRN For Pain (Reported) ([viagra]) Unknown Dose PO PRN for sexual activity (Reported) Additional med instructions One new medication has been added to your home regimen to help improve your cholesterol levels: - Atorvastatin 40 mg nightly Continue all other medications per instructions by their prescriber. Followup Plan Discharge Diet: Heart Healthy, Other (low carbohydrate) Discharge Activity: No restrictions Patient Instructions - The symptoms you experienced yesterday of weakness and difficulty speaking or direct results of disease in your arteries. It is important that you control this and make proper lifestyle changes so that this does not progress and cause more lasting effects. - Please follow a low carbohydrate diet. This includes eliminating sugary drinks such as soda. - Increasing your physical activity is also important. Starting with walking daily and increasing as tolerated. - Follow-up with your primary care provider in one week. Follow-up with PCP in: 1 week Attending Statement The patient was seen and examined together with Dr. Chung on 03/27/2016 and I agree with the history, exam and plan as outlined in the note above. . LUÍS CHUNG DO Mar 27, 2016 15:53 Foc Hampton MD Mar 28, 2016 08:09
== END 2016-03-27 15:25 | disposition home or self-care (01) ==
LOC: SED 19:20 → PCC 22:36 → INTOOBSV 22:36
PROVIDERS: ADMIT Internal Medicine; ATTEND Internal Medicine
DX: R53.1 Weakness (principal); R47.01 Aphasia; F41.9 Anxiety disorder, unspecified; E78.1 Pure hyperglyceridemia; Z79.899 Other long term (current) drug therapy; Z79.82 Long term (current) use of aspirin
CPT/HCPCS: 36415; 70450; 70496; 70498; 70553; 71010; 80053; 80061; 81000; 83036; 83735; 84484; 85025; 85610; 85730; 87086; 92610; 93005; 93880; 96360; 97161; 99285; A9585; C8929; G0378; J7030; Q9967